=== PATIENT | male | born 1950 | race Caucasian/White ===

== ENCOUNTER 2017-04-04 05:36 | Emergency (ER) | payer OTHER, BC ==
[~2017-04-04] VITALS: Ht 180.3 cm; Wt 99.8 kg
[2017-04-04] MEDS ORDERED: LIDOCAINE 2%/EPI 1:100,000 20 ML VIAL. IJ ONE (06:15)
[2017-04-04] MEDS ORDERED: LIDOCAINE 1%/EPI 1:100,000 20 ML VIAL. ONE (06:16)
--- NOTE | 2017-04-04 06:20 | PHYS DOC ---
Past Medical History Past Medical History: No Pertinent History Past Surgical History: Other Additional Past Surgical Histo: VASECTOMY Alcohol Use: Heavy Drug Use: None Adult General Chief Complaint Chief Complaint: LACERATION/AVULSION HPI HPI Patient is a 67 year old male who presents with complaint of laceration to the right forearm. 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 This caused a T-shaped laceration to his right forearm. Bleeding was controlled prior to arrival. Patient states that he was sent from his place of work to the emergency department for evaluation. Patient denies any other injuries. The injury occurred approximately 1-1/2 hours prior to arrival. Patient currently rates pain as 4 out of 10 to the right forearm. The patient states that he is not up-to-date on his tetanus status. Review of Systems Review of Systems Constitutional: Denies fever or chills [] Eyes: Denies change in visual acuity, redness, or eye pain [] HENT: Denies nasal congestion or sore throat [] Musculoskeletal: Denies back pain or joint pain [] Integument: Right forearm laceration[] Neurologic: Denies headache, focal weakness or sensory changes [] Current Medications Current Medications Current Medications Medications (Trade) Dose Ordered Sig/[facility] Start Time Stop Time Status Last Admin Dose Admin Lidocaine/ Epinephrine (Xylocaine 1%-Epi 1:100,000) 20 ml 1X ONCE 04/04/17 06:30 04/04/17 06:31 DC Lidocaine/ Epinephrine (Xylocaine 2%-Epi 1:100,000) 20 ml 1X ONCE 04/04/17 06:15 04/04/17 06:22 DC Neomycin/ Polymyxin/ Bacitracin (Triple Antibiotic Ointment) 1 pkt 1X ONCE 04/04/17 07:15 04/04/17 07:16 Tetanus/ Diphtheria Toxoids (Tenivac Syringe) 0.5 ml ONCE ONCE 04/04/17 06:30 04/04/17 06:31 DC Allergies Allergies Allergies Coded Allergies Type Severity Reaction Last Updated Verified No Known Drug Allergies 08/15/15 No Physical Exam Physical Exam Constitutional: Alert, afebrile, no acute distress. [] HENT: Normocephalic, atraumatic, bilateral external ears normal, oropharynx moist, no oral exudates, nose normal. [] Skin: Warm, dry, no erythema, 5 cm x 2 cm T-shaped laceration to dorsum of right forearm. [] Back: No tenderness, no CVA tenderness. [] Extremities: No tenderness, no cyanosis, no clubbing, ROM intact, no edema. [] Neurologic: Alert and oriented X 3, normal motor function, normal sensory function, no focal deficits noted. [] Current Patient Data Vital Signs Vital Signs Date Time Temp Pulse Resp B/P (MAP) Pulse Ox O2 Delivery O2 Flow Rate FiO2 04/04/17 05:53 98.0 69 18 95 Room Air 98.0 EKG EKG Not performed[] Radiology/Procedures Radiology/Procedures Indication: Right forearm laceration Procedure: The patient was placed in the appropriate position and anesthesia around the laceration was achieved with injection of lidocaine 1% with epinephrine. The area was then irrigated with high-pressure saline and prepped with Betadine. The laceration was closed using 5 simple interrupted sutures and 1 horizontal mattress suture using 3-0 Ethilon. The wound area was then dressed with antibiotic ointment, Telfa, and Kerlix. Total repaired wound length: 6 cm. Other Items: Suture count: 6 The patient tolerated the procedure without difficulty. Complications: None.[] Course & Med Decision Making Course & Med Decision Making Pertinent Labs and Imaging studies reviewed. (See chart for details) The patient receives repair of his laceration as outlined in the procedure note. Tetanus was updated in the emergency department. Patient's workman's comp paperwork was completed. Advised patient to follow-up in 14 days for removal of sutures. Advised return to emergency department for any worsening symptoms. Patient voiced understanding and in agreement with treatment plan. Dragon Disclaimer Dragon Disclaimer This electronic medical record was generated, in whole or in part, using a voice recognition dictation system. Departure Departure Impression: Primary Impression: Laceration of right forearm Disposition: 01 HOME, SELF-CARE Condition: IMPROVED Referrals: NO PCP (PCP) Patient Instructions: Laceration Care, Adult Additional Instructions: Follow-up with a health care provider in 14 days to have your sutures removed. Return to the emergency department for any worsening symptoms. Scripts Cephalexin (KEFLEX) 500 Mg Capsule 1 CAP PO TID, #15 CAP Prov: IAIN HINKLE MD 04/04/17 Problem Qualifiers Primary Impression: Laceration of right forearm Encounter type: initial encounter Qualified Codes: S51.811A - Laceration without foreign body of right forearm, initial encounter IAIN HINKLE MD Apr 04, 2017 06:20
[2017-04-04] MEDS ORDERED: TETANUS AND DIPHTHERIA TOX/PF 0.5 ML DISP.SYRIN. VAX IM ONE (06:30)
[2017-04-04] MEDS ORDERED: LIDOCAINE 1%/EPI 1:100,000 20 ML VIAL. INJ ONE (06:30)
[2017-04-04] MEDS ORDERED: NEOMY/BACITR/POLYMYXIN OINT PACKET. TP ONE ×2 (06:57→07:15)
[2017-04-04] MEDS ORDERED: CEPH-264 PO (07:06)
[2017-04-04 07:14] VITALS: BP 142/85
== END 2017-04-04 07:15 | disposition home or self-care (01) ==
LOC: ER 05:36
DX: S51.811A Laceration without foreign body of right forearm, initial encounter (principal); W23.0XXA Caught, crushed, jammed, or pinched between moving objects, initial encounter; Y93.89 Activity, other specified; Y99.8 Other external cause status; Y92.89 Other specified places as the place of occurrence of the external cause
CPT/HCPCS: 12002; 90471; 90714; 99283; J3490